=== PATIENT | female | born 1980 | race Caucasian/White ===

== ENCOUNTER 2018-05-23 18:35 | Emergency (ER) | payer OTHER ==
[2018-05-23 18:54] VITALS: RESP 18
[2018-05-23] MEDS ORDERED: CLINDAMYCIN 150 MG CAP PO STA (19:12)
[2018-05-23] MEDS ORDERED: BUPIVACAINE (PF) 0.5% 30 ML VIAL SQ STA (19:12)
[2018-05-23] MEDS ORDERED: ACET/COD 300 MG/30 MG STARTER PACK 6 TAB BTL PO STA (19:12)
[2018-05-23] MEDS ORDERED: IBUPROFEN 600 MG STARTER PACK 4 TAB BTL PO STA (19:12)
--- NOTE | 2018-05-23 19:17 | ED ---
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 She reports over the past 24 sheswelling over the gums and lower cheek. She reports that she has had some drainage around tooth #30 and 28. Multiple dental caries and decaying teeth. He does not have a dentist at this time. Denies any fever or chills. Denies any shortness of breath difficulty swallowing or trismus. No history of ALLERGIES to antibiotics. - Related Data Home Medications Medication Instructions Recorded Confirmed Amoxicillin 500 mg PO ONCE 08/27/16 08/27/16 Previous Rx's Medication Instructions Recorded Amoxic-Pot Clav 875-125Mg 1 tab PO Q12HR #20 tablet 08/27/16 [Augmentin 875-125] Cephalexin [Keflex] 500 mg PO Q12HR 7 Days cap 11/03/16 Clindamycin [Cleocin] 450 mg PO TID 7 Days capsule 05/23/18 Ibuprofen [Motrin] 600 mg PO Q8HR PRN #20 tab 05/23/18 Allergies Allergy/AdvReac Type Severity Reaction Status Date / Time povidone-iodine Allergy Rash/Hives Verified 11/03/16 13:21 [From Betadine] soap [From Betadine] Allergy Rash/Hives Verified 11/03/16 13:21 Review of Systems ROS Statement: Those systems with pertinent positive or pertinent negative responses have been documented in the HPI. ROS Other: All systems not noted in ROS Statement are negative. Past Medical History Past Medical History: No Reported History History of Any Multi-Drug Resistant Organisms: None Reported Past Surgical History: Cholecystectomy Past Psychological History: No Psychological Hx Reported Smoking Status: Current every day smoker Past Alcohol Use History: Rare Past Drug Use History: None Reported General Exam - General Exam Comments Initial Comments: This is a 37-year-old female. Alert and oriented. No significant distress. Limitations: no limitations General appearance: alert, in no apparent distress Head exam: Present: atraumatic, normocephalic, normal inspection Eye exam: Present: normal appearance, PERRL, EOMI. Absent: scleral icterus, conjunctival injection, periorbital swelling ENT exam: Present: normal exam, mucous membranes moist. Absent: normal oropharynx (Chest poor dentition. Evidence of abscess around tooth #3031. Right-sided lower facial swelling.) Neck exam: Present: normal inspection. Absent: tenderness, meningismus, lymphadenopathy Respiratory exam: Present: normal lung sounds bilaterally. Absent: respiratory distress, wheezes, rales, rhonchi, stridor Cardiovascular Exam: Present: regular rate, normal rhythm, normal heart sounds. Absent: systolic murmur, diastolic murmur, rubs, gallop, clicks Psychiatric exam: Present: normal affect, normal mood Skin exam: Present: warm, dry, intact, normal color. Absent: rash Course Vital Signs 05/23/18 18:46 Temperature 96.9 F L Pulse Rate 79 Respiratory 18 Rate Blood Pressure 115/68 O2 Sat by Pulse 99 Oximetry Procedures - Nerve Block Local Anesthetic Used: Marcaine 0.5% Amount of anesthesia used: 3 Side: right Intraoral Nerve Block: inferior alveolar Procedure Successful: Yes Patient Tolerated Procedure: well, no complications Medical Decision Making - Medical Decision Making Patient showed [employer] Patient states she went of right-sided lower facial swelling and dental pain. She has evidence of abscess around tooth #30 and 31. I did use bupivacaine give the Patient a nerve block as well as attempted to drain portion of the abscess. Started the Patient on clindamycin. I discussed follow-up with dental clinic as well as taking the antibiotics as prescribed. Patient is history plan will comply. Return parameters were discussed. Disposition Clinical Impression: Dental abscess Disposition: HOME SELF-CARE Condition: Good Instructions: Dental Abscess (ED) Additional Instructions: Patient has follow-up with primary care physician and dental clinic. Make sure he take entire prescription of the antibiotics. Return to emergency department if any alarming signs or symptoms occur. [facility] [place] [id number] [place] [address] [phone] (existing clients only) For new clients: [phone] 1st consult: $50 (includes Xrays) Usually 30% less then private dentist for visits after. [employer] Have to pay $50 for Xrays and rest is covered. [phone] Prescriptions: Clindamycin [Cleocin] 450 mg PO TID 7 Days capsule Ibuprofen [Motrin] 600 mg PO Q8HR PRN #20 tab PRN Reason: Pain Is patient prescribed a controlled substance at d/c from ED?: No When asked, does pt state using other controlled substances?: No If prescribed controlled substance>3 days was MAPS reviewed?: No If opioid is for acute pain is fill amount 7 days or less?: No If Rx opioid, was Start Talking consent form obtained?: No Referrals: Kaushik Ridley DO [Primary Care Provider] - 1-2 days Time of Disposition: 19:15
[2018-05-23 20:05] VITALS: BP 114/68; PULSE 63; TEMP 98.4
== END 2018-05-23 20:05 | disposition home or self-care (01) ==
LOC: EC 18:35
DX: K04.7 Periapical abscess without sinus (principal); F17.200 Nicotine dependence, unspecified, uncomplicated; Z88.8 Allergy status to other drugs, medicaments and biological substances; Z91.048 Other nonmedicinal substance allergy status
CPT/HCPCS: 41800; 99283